=== PATIENT | female | born 1945 | race Caucasian/White ===

== ENCOUNTER → 2016-10-18 | Outpatient (CLI) | payer MEDICARE, OTHER ==
[~2016-10-18] MED LIST: ACTONEL 35MG TA35 MG PO; ADVAIR 100/28 DISKUS IH; ALBUTEROL SULFAT3 M3 IH; ALBUTEROL0.09 MG/A1 IH; ALBUTEROL0.83 MG/ML IH; ALENDRONATE SOD70 MG PO; ALLOPURINOL100 MG PO; APRESOLINE 10MG10 MG PO; ASPIR-LOW81 MG PO; ASPIRIN 81M81 MG/TA2 PO; ASPIRIN E.C. 8181 MG PO; ATIVAN 0.50.5 MG/TAB PO; ATIVAN 1MG T1 MG/TAB PO; BREATHING TREATMENTS; BUDESONIDE1 POW; BUTALBITAL/APAP1 TA1 PO; BYSTOLIC10 MG PO; CALCIUM + D 6001 TA1 PO; CALCIUM 500500 M2 PO; CALCIUM WITH D1 CTB PO; CARDI-OMEGA1000 MG PO; CARDIZEM 60MG T60 MG PO; CARDIZEM SR 60M60 MG PO; CARDIZEM120 MG PO; CEFTIN500 MG PO; CELLCEPT 5500 MG/TAB PO; CLEOCIN HCL300 MG PO; COZAAR 50MG50 MG/TAB PO; CRESTOR 10MG10 MG PO; CYMBALTA 30MG30 MG PO; CYMBALTA 60MG60 MG PO; CYMBALTA60 MG PO; D3-5050000 IU PO; DESYREL 50MG50 MG PO; DILANTIN 100MG100 MG PO; EPA FISH OIL1000 MG PO; EVISTA; FIORICET 325 MG1 TA1 PO; FIORICET 325 MG1 TAB; FIORICET 325 MG1 TAB PO; FIORICET W/CODE1 CA1 PO; FLEXERIL5 MG PO; FOLIC ACID1 MG PO; GUAIFEN-PSE 6001 TER PO; HUMALOG; IMODIUM 2MG CAPS2 MG PO; IMODIUM A-D2 MG PO; IRON65 M1; KEPPRA1000 MG PO; L-LYSINE500 M1 PO; LACTAID1 TAB PO; LAMICTAL 100MG100 MG PO; LANTUS100 U/ML; LANTUS100 U/ML SC; LANTUS100 U/ML SQ; LEVOTHYROXINE PO; LIDODERM PATCH TP; LIPITOR 10MG10 MG PO; LIPITOR 40MG TA40 MG PO; LISINOPRIL20 MG PO; LOMOTIL 0.025 M1 TAB PO; LOPERAMIDE HCL2 MG PO; LOPERAMIDE2 MG PO; LORTAB 10/500 51 TAB PO; LORTAB 7.5/5001 TAB; LORTAB 7.5/5001 TAB PO; LYRICA 100MG C100 M1 PO; LYRICA75 MG PO; MAG-OX 400400 MG/TAB PO; MAGNESIUM OXIDE PO; MAGNESIUM200 MG PO; MANY VITAMINS; MELATONIN1.5 MG PO; MELATONIN20 MG PO; MELATONIN5 M1 PO; MESTINON; MESTINON 6060 MG/TAB PO; MESTINON60 MG PO; MULTIPLE VITAMI1 CAP PO; MYSOLINE 5050 MG/TAB PO; NEXIUM 40MG40 MG PO; NEXIUM I.V. 40M40 MG PO; NEXIUM40 MG PO; NITROSTAT0.4 MG/TAB SL; NORCO 325 MG-101 TAB PO; NOVOLOG FLEX100 U/ML IV; NOVOLOG FLEX100 U/ML SC; NOVOLOG100 U/ML IV; OMEGA 31000 MG PO; PERCOCET 325 MG1 TAB PO; PHENERGAN 25 TA25 MG PO; PRAVACHOL 40MG40 MG PO; PRAVACHOL10 MG PO; PRAVACHOL80 MG PO; PREDNISONE10 MG PO; PROMETHAZINE25 M1 PO; PULMICORT90 MCG/Act IH; PULMICORT90 MCG/Act INH; RELPAX; RITE AID BIO2500 MCG PO; RITE AID MELATON5 MG PO; ROZEREM 8MG TABL8 MG PO; RT ALBUTER2.5 MG/0.5 IH; SIMVISTATIN; SYNTHROID 0.0.025 MG PO; SYNTHROID0.075 MG PO; SYNTHROID0.075 MG/T PO; SYNTHROID0.088 MG/T PO; TOPAMAX 100MG100 M1 PO; TOPAMAX 100MG100 MG PO; TRANXENE T-TAB7.5 MG PO; TYLENOL 500MG500 MG PO; VIMPAT200 MG PO; VITAMIN B121000 MCG PO; VITAMIN C BUFF500 MG PO; VITAMIN D31000 IU PO; VITAMIN D50000 I1 PO; VITAMIN D50000 IU PO; VYTORIN; ZANAFLEX4 M1 PO; ZITHROMAX Z PA250 MG PO; ZITHROMAX500 M2 PO; ZOCOR40 MG PO; ZOFRAN 4MG T4 MG/TAB PO; ZYRTEC 10MG; bystolic; veramyst
== END ==
LOC: COL.RAD 10:35
DX: Z01.812 Encounter for preprocedural laboratory examination (principal); R56.9 Unspecified convulsions; R26.0 Ataxic gait; R53.1 Weakness
CPT/HCPCS: Q9967

== ENCOUNTER → 2017-04-18 | Outpatient (CLI) | payer MEDICARE, OTHER | LOC: COL.RAD 07:58 | DX: K44.9 Diaphragmatic hernia without obstruction or gangrene (principal); Z90.49 Acquired absence of other specified parts of digestive tract; Z90.710 Acquired absence of both cervix and uterus; K57.30 Diverticulosis of large intestine without perforation or abscess without bleeding; R10.84 Generalized abdominal pain; R07.9 Chest pain, unspecified | CPT/HCPCS: J7050; Q9967 ==

== ENCOUNTER → 2017-06-21 | Outpatient (CLI) | payer MEDICARE, OTHER | LOC: COL.RAD 05-20 10:30 | DX: K44.9 Diaphragmatic hernia without obstruction or gangrene (principal); K22.4 Dyskinesia of esophagus ==

== ENCOUNTER → 2017-09-05 | Outpatient (CLI) | payer MEDICARE, OTHER | LOC: COL.RAD 12:58 | DX: M50.323 Other cervical disc degeneration at C6-C7 level (principal); G95.89 Other specified diseases of spinal cord; M26.69 Other specified disorders of temporomandibular joint ==

== ENCOUNTER 2018-02-06 17:47 | Emergency (ER) | payer MEDICARE, OTHER ==
[~2018-02-06] VITALS: Ht 160 cm; Wt 91.8 kg
[2018-02-06 17:56] VITALS: TEMP 97.9
[2018-02-06] MEDS ORDERED: TYLENOL 325MG325 MG PO (19:30)
[2018-02-06] MEDS ORDERED: PROVENTIL0.09 MG/A1 IH (19:30)
[2018-02-06] MEDS ORDERED: EXCEDRIN1 TAB PO (19:31)
[2018-02-06] MEDS ORDERED: TESSALON P100 MG/CAP PO (19:31)
[2018-02-06] MEDS ORDERED: LIPITOR 10MG10 MG PO (19:31)
[2018-02-06] MEDS ORDERED: RT ALBUTER2.5 MG/0.5 IH (19:31)
[2018-02-06] MEDS ORDERED: DULCOLAX TAB5 MG PO (19:32)
[2018-02-06] MEDS ORDERED: CARDIZEM 60MG T60 MG PO (19:32)
[2018-02-06] MEDS ORDERED: TEMOVATE OINT30 GM TOP (19:32)
[2018-02-06] MEDS ORDERED: LOMOTIL 0.025 M1 TAB PO (19:32)
[2018-02-06] MEDS ORDERED: MULTAQ400 MG PO (19:33)
[2018-02-06] MEDS ORDERED: FERRO-TIME325 MG PO (19:33)
[2018-02-06] MEDS ORDERED: MUCINEX 60600 MG/TA1 PO (19:33)
[2018-02-06] MEDS ORDERED: CYMBALTA 60MG60 MG PO (19:33)
[2018-02-06] MEDS ORDERED: ANUSOL-HC SUPPO25 MG RC (19:34)
[2018-02-06] MEDS ORDERED: LEVSIN0.125 M1 PO (19:34)
[2018-02-06] MEDS ORDERED: NORCO 325 MG-101 TAB PO (19:34)
[2018-02-06] MEDS ORDERED: HUMALOG100 U/ML (19:35)
[2018-02-06] MEDS ORDERED: LANTUS SOLOS100 U/ML (19:35)
[2018-02-06] MEDS ORDERED: NIZORAL SHAMPO120 M1 TP (19:35)
[2018-02-06] MEDS ORDERED: ZTLIDO1 EACH TP (19:36)
[2018-02-06] MEDS ORDERED: LAMICTAL 100MG100 MG PO (19:36)
[2018-02-06] MEDS ORDERED: PROBIOTIC ACID1 EAC3 PO (19:36)
[2018-02-06] MEDS ORDERED: SYNTHROID0.088 MG/T PO (19:36)
[2018-02-06] MEDS ORDERED: IMODIUM 2MG CAPS2 MG PO (19:37)
[2018-02-06] MEDS ORDERED: COZAAR 50MG50 MG/TAB PO (19:37)
[2018-02-06] MEDS ORDERED: NITROSTAT0.4 MG/TAB SL (19:37)
[2018-02-06] MEDS ORDERED: NYAMYC100000 U/G TP (19:37)
[2018-02-06] MEDS ORDERED: ZOFRAN ODT4 MG PO (19:38)
[2018-02-06] MEDS ORDERED: PROTONIX 40MG T40 MG PO (19:38)
[2018-02-06] MEDS ORDERED: PREDNISONE20 MG PO (19:38)
[2018-02-06] MEDS ORDERED: ZOLOFT 100MG100 MG (19:39)
[2018-02-06] MEDS ORDERED: MESTINON 6060 MG/TAB PO (19:39)
[2018-02-06] MEDS ORDERED: GAS AID MAXIMU125 MG PO (19:39)
[2018-02-06] MEDS ORDERED: VITAMIN C500 MG PO (19:40)
[2018-02-06 20:06] VITALS: BP 145/92; PULSE 85
== END 2018-02-06 20:06 | disposition home or self-care (01) ==
LOC: COL.ER 17:47
DX: S80.02XA Contusion of left knee, initial encounter (principal); S80.01XA Contusion of right knee, initial encounter; S00.83XA Contusion of other part of head, initial encounter; I48.91 Unspecified atrial fibrillation; I10 Essential (primary) hypertension; E11.9 Type 2 diabetes mellitus without complications; J45.909 Unspecified asthma, uncomplicated; M79.7 Fibromyalgia; E78.5 Hyperlipidemia, unspecified; Z79.4 Long term (current) use of insulin; Z87.891 Personal history of nicotine dependence; Z79.82 Long term (current) use of aspirin; W01.0XXA Fall on same level from slipping, tripping and stumbling without subsequent striking against object, initial encounter; Y92.009 Unspecified place in unspecified non-institutional (private) residence as the place of occurrence of the external cause
CPT/HCPCS: J2405; J3010

== ENCOUNTER 2018-03-13 03:35 | Emergency (ER) | payer MEDICARE, OTHER ==
[~2018-03-13] VITALS: Ht 160 cm; Wt 91.8 kg
[~2018-03-13 03:35] MED LIST changes: +ANUSOL-HC SUPPO25 MG RC; +DULCOLAX TAB5 MG PO; +EXCEDRIN1 TAB PO; +FERRO-TIME325 MG PO; +GAS AID MAXIMU125 MG PO; +HUMALOG100 U/ML; +LANTUS SOLOS100 U/ML; +LEVSIN0.125 M1 PO; +MUCINEX 60600 MG/TA1 PO; +MULTAQ400 MG PO; +NIZORAL SHAMPO120 M1 TP; +NYAMYC100000 U/G TP; +PREDNISONE20 MG PO; +PROBIOTIC ACID1 EAC3 PO; +PROTONIX 40MG T40 MG PO; +PROVENTIL0.09 MG/A1 IH; +TEMOVATE OINT30 GM TOP; +TESSALON P100 MG/CAP PO; +TYLENOL 325MG325 MG PO; +VITAMIN C500 MG PO; +ZOFRAN ODT4 MG PO; +ZOLOFT 100MG100 MG; +ZTLIDO1 EACH TP
[2018-03-13 03:42] VITALS: TEMP 97.6
[2018-03-13 04:49] VITALS: BP 153/103; PULSE 74
[2018-03-13] MEDS ORDERED: SEROQUEL50 MG PO (05:43)
[2018-03-13] MEDS ORDERED: TRIAM OI 0.1 80 TOP (05:44)
[2018-03-13] MEDS ORDERED: TRIAMCINOLONE A15 G3 TP (05:44)
== END 2018-03-13 04:55 | disposition home or self-care (01) ==
LOC: COL.ER 03:35
DX: H10.212 Acute toxic conjunctivitis, left eye (principal); I25.10 Atherosclerotic heart disease of native coronary artery without angina pectoris; Z79.4 Long term (current) use of insulin; Z87.891 Personal history of nicotine dependence; Z79.82 Long term (current) use of aspirin

== ENCOUNTER → 2019-09-07 | Outpatient (CLI) | payer MEDICARE, OTHER ==
[~2019-09-07] MED LIST changes: +SEROQUEL50 MG PO; +TRIAM OI 0.1 80 TOP; +TRIAMCINOLONE A15 G3 TP
== END ==
LOC: COL.RAD 15:00
DX: S09.90XA Unspecified injury of head, initial encounter (principal); W19.XXXA Unspecified fall, initial encounter

== ENCOUNTER 2020-02-24 14:50 | Observation (INO) | payer MEDICARE, OTHER ==
[~2020-02-24] VITALS: Ht 160 cm; Wt 93.7 kg
[2020-02-24 16:24] LABS: BASO # 0.1 (0.0-0.2); BASO % 0.6 % (0.0-2.0); EOS # 0.3 (0.0-0.7); EOS % 3.6 % (0-4.0); GRAN # 5.7 (1.4-6.5); GRAN % 68.2 % (42.2-75.2); HEMATOCRIT 41.9 % (37.0-47.0); HEMOGLOBIN 13.9 g/dl (12.5-16.0); LYMPH # 1.7 (1.2-3.4); LYMPH % 20.8 % (20.0-51.0); MEAN CELL VOLUME 91 fl (80.0-100.0); MEAN CORPUSCULAR HEMOGLOBIN 30 pg (27.0-31.0); MEAN CORPUSCULAR HGB CONC 33 g/dl (33.0-37.0); MEAN PLATELET VOLUME 11.4 fl (7.4-10.4); MONO # 0.5 (0.1-0.6); MONO % 6.4 % (1.7-9.3); PLATELET COUNT 209 K/mm3 (130-400); RED BLOOD COUNT 4.62 M/mm3 (4.10-5.30); REDCELL DISTRIBUTION WIDTH-CV 13.2 % (11.5-14.5)
[2020-02-24 16:36] LABS: ALANINE AMINOTRANSFERASE 14 U/L (4-34); ALBUMIN 3.8 gm/dL (3.5-5.0); ALKALINE PHOSPHATASE 65 U/L (50-136); ANION GAP -1 mmol/L (7-16); AST,SGOT 32 U/L (15-37); BILIRUBIN,TOTAL 0.4 mg/dL (0.0-1.0); BLOOD UREA NITROGEN 12 mg/dL (7-17); CALCIUM 9.2 mg/dL (8.4-10.2); CARBON DIOXIDE 29 mmol/L (22-30); CHLORIDE 108 mmol/L (98-107); CREATININE, serum 0.66 (0.52-1.25); GLUCOSE 201 mg/dL (74-106); POTASSIUM 4.4 mmol/L (3.4-5.0); SODIUM 135 mmol/L (137-145); TOTAL PROTEIN 6.9 gm/dL (6.4-8.2)
[2020-02-24 16:40] LABS: C-REACTIVE PROTEIN < 0.5 mg/dL (0.0-0.9)
[2020-02-24 16:44] LABS: TROPONIN-I < 0.012 ng/mL (0.000-0.035)
[2020-02-24 18:05] LABS: COLLECTION METHOD CLEAN CATCH
[2020-02-24 18:14] LABS: MUCOUS Present /lpf; PH 5 (5-8); URINE APPEARANCE Clear; URINE BACTERIA None Seen /hpf; URINE BILIRUBIN Negative (NEGATIVE); URINE BLOOD Negative (NEGATIVE); URINE COLOR Yellow; URINE GLUCOSE Negative (NEGATIVE); URINE KETONE Negative (NEGATIVE); URINE LEUKOCYTE ESTERASE Trace (NEGATIVE); URINE NITRATE Negative (NEGATIVE); URINE PROTEIN(semi-quant) Negative (NEGATIVE); URINE RBC 0-2 /hpf; URINE UROBILINOGEN Negative (NEGATIVE)
[2020-02-24 19:51] LABS: ARTERIAL BLD GAS O2 SATURATION 94.7 % (92-100); ARTERIAL BLD GAS TCO2 CT 27.1; ARTERIAL BLOOD GAS BASE EXCESS 1.5 (-2-2); ARTERIAL BLOOD GAS HCO3 25.8 meq/L (22-26); ARTERIAL BLOOD GAS PO2 67.7 mmHg (80-100); ARTERIAL BLOOD GAS pH 7.43 (7.35-7.45)
[2020-02-24] MEDS ORDERED: VITAMIN D31000 I1 PO (23:47)
[2020-02-24] MEDS ORDERED: FLEXERIL5 MG PO (23:48)
[2020-02-24] MEDS ORDERED: ATROVENT NASAL15 ML NS (23:49)
[2020-02-24] MEDS ORDERED: UBRELVY50 MG PO (23:49)
[2020-02-24] MEDS ORDERED: LEADER NATUR1000 MCG PO (23:50)
[2020-02-25] MEDS ORDERED: TEMOVATE0.05% TP (00:01)
[2020-02-25] MEDS ORDERED: RESTASIS MULTI5.5 ML OP (00:02)
[2020-02-25] MEDS ORDERED: BREO ELLIPTA 21 EACH IH (00:04)
[2020-02-25] MEDS ORDERED: IRON TABLETS325 MG PO (00:06)
[2020-02-25] MEDS ORDERED: CARDIZEM SR 60M60 MG PO (00:06)
[2020-02-25] MEDS ORDERED: NARCAN4 MG NS (00:13)
[2020-02-25] MEDS ORDERED: ZOLOFT 50MG50 MG PO (00:17)
--- NOTE | 2020-02-25 01:01 | NUR ---
received report from ISAIAS Mejia.
--- NOTE | 2020-02-25 01:08 | NUR ---
pt arrived in room via wheelchair.
[2020-02-25 01:18] VITALS: BP 150/90; PULSE 82; TEMP 98.7
[2020-02-25 04:14] VITALS: BP 120/65; PULSE 65; TEMP 97.7
[2020-02-25 06:50] LABS: HEMATOCRIT 37.2 % (37.0-47.0); HEMOGLOBIN 12.1 g/dl (12.5-16.0); RED BLOOD COUNT 4.08 M/mm3 (4.10-5.30)
[2020-02-25 06:51] LABS: BASO % 0.5 % (0.0-2.0); EOS # 0.3 (0.0-0.7); EOS % 4.6 % (0-4.0); GRAN # 4.4 (1.4-6.5); GRAN % 59.9 % (42.2-75.2); LYMPH % 26.6 % (20.0-51.0); MEAN CELL VOLUME 91 fl (80.0-100.0); MEAN CORPUSCULAR HEMOGLOBIN 30 pg (27.0-31.0); MEAN CORPUSCULAR HGB CONC 33 g/dl (33.0-37.0); MEAN PLATELET VOLUME 11.9 fl (7.4-10.4); MONO # 0.6 (0.1-0.6); PLATELET COUNT 173 K/mm3 (130-400); REDCELL DISTRIBUTION WIDTH-CV 13.1 % (11.5-14.5)
[2020-02-25 07:00] LABS: CALCIUM 8.4 mg/dL (8.4-10.2); CREATININE, serum 0.59 (0.52-1.25); POTASSIUM 3.5 mmol/L (3.4-5.0)
--- NOTE | 2020-02-25 07:18 | NUR ---
report given to ISAIAS Malloy.
--- NOTE | 2020-02-25 07:25 | NUR ---
PATIENT STATES SHE IS ON 2 LPM OXYGEN AT HOME. SHE IS 93% ON ROOM AIR THIS AM. PERFORMED IS AT 500L THIS AM ,BACK ON 2LPM,
[2020-02-25 08:51] VITALS: BP 140/80; PULSE 71; TEMP 97.6
--- NOTE | 2020-02-25 10:45 | NUR ---
PATIENT COMPLETED NIF TRIAL TIMES 3, RESULTS WERE 24,20,19LPM.
--- NOTE | 2020-02-25 11:34 | NUR ---
Chaplain maynard for patient while standing outside of door.
[2020-02-25 12:00] VITALS: BP 140/80; PULSE 75; TEMP 98.3
--- NOTE | 2020-02-25 14:09 | NUR ---
SW attempted contact DTR reports she is not feeling well and could do assessment. states he needs time to take care of and needs a few hours. Will attempt later.
--- NOTE | 2020-02-25 14:36 | NUR ---
Pt stated she wanted to go home, wanted this nurse to inform hospitalist. Dr. Hall aware, we are still waiting on ABGs to be completed. Pt informed and verbalized understanding.
[2020-02-25 14:48] LABS: ARTERIAL BLOOD GAS BASE EXCESS -3.9 (-2-2); ARTERIAL BLOOD GAS HCO3 20.8 meq/L (22-26); ARTERIAL BLOOD GAS PCO2 37.1 mmHg (35-45); ARTERIAL BLOOD GAS PO2 70.6 mmHg (80-100); ARTERIAL BLOOD GAS pH 7.37 (7.35-7.45)
--- NOTE | 2020-02-25 17:52 | NUR ---
Pt discharge instructions discussed and reviewed w/ patient who verbalized understanding. All questions answered. LWR INT IV dc'd w/ cath tip intact and no further issues. Pt escorted out to ER entrance w/ son in law picking her up. Isolation precautions maintained.
== END 2020-02-25 17:54 | disposition home or self-care (01) ==
LOC: COL.ER 14:50 → MEDICAL 23:23
PROVIDERS: Nurse Practitioner; Nurse Practitioner Family; ADMIT Internal Medicine
DX: R06.02 Shortness of breath (principal); G70.00 Myasthenia gravis without (acute) exacerbation; I10 Essential (primary) hypertension; E78.2 Mixed hyperlipidemia; I48.91 Unspecified atrial fibrillation; G40.909 Epilepsy, unspecified, not intractable, without status epilepticus; E11.9 Type 2 diabetes mellitus without complications; J45.40 Moderate persistent asthma, uncomplicated; Z20.828 Contact with and (suspected) exposure to other viral communicable diseases; E03.9 Hypothyroidism, unspecified; I07.1 Rheumatic tricuspid insufficiency; G47.33 Obstructive sleep apnea (adult) (pediatric); E06.3 Autoimmune thyroiditis; Z79.899 Other long term (current) drug therapy; Z96.82 Presence of neurostimulator; Z95.0 Presence of cardiac pacemaker; Z88.0 Allergy status to penicillin; Z88.2 Allergy status to sulfonamides; Z88.1 Allergy status to other antibiotic agents; Z91.040 Latex allergy status; Z88.8 Allergy status to other drugs, medicaments and biological substances; Z88.6 Allergy status to analgesic agent; Z86.718 Personal history of other venous thrombosis and embolism; Z79.82 Long term (current) use of aspirin; Z79.4 Long term (current) use of insulin; Z79.890 Hormone replacement therapy; Z87.891 Personal history of nicotine dependence
CPT/HCPCS: A9284; J1650; J1815; J7030; Q9967

== ENCOUNTER 2020-05-03 15:29 | Outpatient (RCR) | payer MEDICARE, OTHER ==
[~2020-05-03 15:29] MED LIST changes: +ATROVENT NASAL15 ML NS; +BREO ELLIPTA 21 EACH IH; +IRON TABLETS325 MG PO; +LEADER NATUR1000 MCG PO; +NARCAN4 MG NS; +RESTASIS MULTI5.5 ML OP; +TEMOVATE0.05% TP; +UBRELVY50 MG PO; +VITAMIN D31000 I1 PO; +ZOLOFT 50MG50 MG PO
== END 2020-08-01 ==
LOC: WSOT
DX: Z98.890 Other specified postprocedural states (principal)